=== PATIENT | female | born 1965 | race Caucasian/White ===

== ENCOUNTER → 2016-04-10 | Outpatient (CLI) | payer OTHER ==
[~2016-04-10] VITALS: Ht 167.6 cm; Wt 70.3 kg
[~2016-04-10] MED LIST: FLUO10CA7 PO; HYDR50TA PO; METO25TA9 PO; TRAZ50TA15 PO
[2016-04-10 13:43] VITALS: BP 109/70
--- NOTE | 2016-04-12 14:47 | PATHOLOGY ---
PATHOLOGY REPORT * * * * * * * * FINAL DIAGNOSIS: A. Breast tissue, right breast 11:00 core biopsies: Fibrocystic changes with the following components: - Stromal fibrosis. - Duct ectasia. - Cystic change. - Apocrine metaplasia. B. Breast tissue, right breast 1:00 core biopsies: Proliferative fibrocystic changes with the following components; - Moderate ductal epithelial hyperplasia, focal. - Stromal fibrosis. - Duct ectasia. - Cystic change. - Apocrine metaplasia. Sclerosing adenosis, focal. COMMENT: There is no evidence of malignancy. (JPM:[email or web address]; d/t: 04/12/16) REPORT ELECTRONICALLY SIGNED BY: Yg Villalobos M.D. DATE/TIME: 04/12/2016 14:47 * * * * * * * * GROSS PATHOLOGY: A. Received in formalin labeled "Sarah Heredia, 11:00 right breast," are multiple needle cores of yellow-mueller fibrofatty tissue measuring 2.5 x 1.8 x 0.4 cm in aggregate dimensions. The tissue is submitted in its entirety in cassette A1. The cold ischemic time is less than 1 minute. The total formalin fixation time is 28 hours and 59 minutes. B. Received in formalin labeled "Sarah Heredia, 1:00 right breast," are multiple needle cores of yellow-mueller fibrofatty tissue measuring 2.5 x 1.2 x 0.4 cm in aggregate dimensions. The tissue is submitted in its entirety in cassette B1. The cold ischemic time is less than 1 minute. The total formalin fixation time is 28 hours and 45 minutes. (CAA; 04/11/2016) INITIAL CPT CODE(S): A; 65273 B; 23523 Professional services performed by [facility] at [address] [address] Technical services performed by [facility] at [address] [place] [address], [address], [place] [address]. SPECIMEN(S) RECEIVED: A.Right breast @ 11 o'clock B.Right breast @ 1 o'clock CLINICAL HISTORY: Right breast nodules PATIENT: SARAH HEREDIA /AGE: 508/13/1965 (Age: 50) PATIENT #: [id number] ALT CASE #: SPECIMEN COLLECTION DATE: 04/10/2016 SPECIMEN RECEIVED DATE: 04/10/2016 [facility] - [address] [address] - PHONE: [phone] * * * END OF REPORT * * *
== END | disposition home or self-care (01) ==
LOC: US 13:10
PROVIDERS: ATTEND Family Medicine
DX: R92.8 Other abnormal and inconclusive findings on diagnostic imaging of breast (principal); N63 Unspecified lump in breast
CPT/HCPCS: 76942; C1713; G0206; 77065